=== PATIENT | female | born 1960 | race Hispanic/Latino ===

== ENCOUNTER 2023-03-05 20:57 | Emergency (ER) | payer OTHER ==
[~2023-03-05] VITALS: Ht 162.6 cm; Wt 64.9 kg
[2023-03-05] MEDS ORDERED: FAMOTIDINE 20MG TAB PO ONE (21:30)
[2023-03-05] MEDS ORDERED: METOCLOPRAMIDE 10 MG/2 ML VIAL IVP ONE (21:30)
[2023-03-05] MEDS ORDERED: LACTATED RINGERS 1000ML 1,000 ML IV ONE (21:30)
[2023-03-05] MEDS ORDERED: MORPHINE 2 MG SYG IVP ONE (21:30)
[2023-03-05 22:34] LABS: BASOPHILS % (AUTO) 0.4 % (0.0-5.0); EOSINOPHILS % (AUTO) 0.5 % (0.0-8.0); HEMATOCRIT 37.8 % (36-48); LYMPHOCYTES % (AUTO) 13.4 % (21.0-51.0); MEAN CORPUSCULAR HEMOGLOBIN 29.3 pg (27.0-33.0); MEAN CORPUSCULAR HGB CONC 32.8 g/dL (32.0-36.0); MEAN CORPUSCULAR VOLUME 89.4 fL (79-99); MONOCYTES % (AUTO) 3.3 % (3.0-13.0); PLATELET COUNT (AUTO) 221 K/uL (130-400); RED BLOOD CELL COUNT(AUTO) 4.23 MIL/uL (4.00-5.50); RED CELL DISTRIBUTION WIDTH 13.8 % (11.0-15.5)
[2023-03-05 22:47] LABS: APPEARANCE,URINE CLEAR (CLEAR); BILIRUBIN,URINE NEGATIVE (NEGATIVE); COLOR,URINE COLORLESS (YELLOW); GLUCOSE, URINE (UA) NEGATIVE (NEGATIVE); KETONES,URINE NEGATIVE (NEGATIVE); LEUKOCYTE ESTERASE ,URINE NEGATIVE Leu/uL (NEGATIVE); NITRATE,URINE NEGATIVE (NEGATIVE); OCCULT BLOOD,URINE SMALL (NEGATIVE); PROTEIN,URINE 20 mg/dL (NEGATIVE); UROBILINOGEN,URINE 0.2 mg/dL (0.2-1.0)
[2023-03-05 22:54] LABS: CREATININE 0.7 mg/dL (0.5-1.5); POTASSIUM 3.3 mmol/L (3.5-5.1)
[2023-03-05 22:58] LABS: ALBUMIN 4.3 g/dL (3.5-5.0); TOTAL PROTEIN, SERUM 7.3 g/dL (6.0-8.3)
[2023-03-05 23:02] LABS: SQUAMOUS EPITHELIAL CELL,UR RARE /HPF (0-2)
[2023-03-05 23:54] VITALS: BP 128/70
[2023-03-06] MEDS ORDERED: FAMO-136 PO (00:24)
[2023-03-06] MEDS ORDERED: METO-296 PO (00:24)
[2023-03-06] MEDS ORDERED: KETO10 PO (00:24)
[2023-03-06] MEDS ORDERED: TAMS-1 PO (00:24)
[2023-03-06] MEDS ORDERED: TAMSULOSIN HCL 0.4 MG CAP.ER.24H PO ONE (00:30)
[2023-03-06] MEDS ORDERED: KETOROLAC 30MG VIAL (30MG/ML) IVP ONE (00:30)
== END 2023-03-06 00:53 | disposition home or self-care (01) ==
LOC: EDH 20:57
DX: Q63.1 Lobulated, fused and horseshoe kidney (principal); N20.0 Calculus of kidney; Z85.3 Personal history of malignant neoplasm of breast
CPT/HCPCS: 99285; 74176; 96374; 71045; 96361; 96375 ×2; 84484; 80053; 83690; 85025; 81001; 36415; 93005; J7120; J2270; J2765; J1885